=== PATIENT | female | born 1980 | race Caucasian/White ===

== ENCOUNTER 2020-04-19 22:17 | Emergency (ER) | payer OTHER ==
[2020-04-19 22:35] VITALS: BP 148/98; PULSE 101; RESP 18; TEMP 98
[2020-04-19] MEDS ORDERED: DIPH,PERTUS(ACELL)TETVAC-LF 0.5 ML VIAL IM ONE (23:40)
[2020-04-19] MEDS ORDERED: LIDOCAINE 1% INJ 10MG/ML (20 ML MDV) SQ ONE (23:40)
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
== END 2020-04-20 00:23 | disposition home or self-care (01) ==
LOC: EC 22:17
DX: S61.012A Laceration without foreign body of left thumb without damage to nail, initial encounter (principal); S61.217A Laceration without foreign body of left little finger without damage to nail, initial encounter; Z88.0 Allergy status to penicillin; Z23 Encounter for immunization; W26.0XXA Contact with knife, initial encounter; Y93.89 Activity, other specified; Y92.009 Unspecified place in unspecified non-institutional (private) residence as the place of occurrence of the external cause
CPT/HCPCS: 90715; 90471; 99282; 12002; J2001

== ENCOUNTER 2020-06-15 12:53 | Emergency (ER) | payer OTHER ==
[2020-06-15 13:18] VITALS: RESP 18
[2020-06-15] MEDS ORDERED: MORPHINE SULFATE 4 MG/ML SYRINGE IM STA (14:19)
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
--- NOTE | 2020-06-15 15:09 | XR ---
Left clavicle and 3 views of the left shoulder HISTORY: Trauma and pain 2 views the left clavicle correlated to 3 views the left shoulder No fracture or dislocation. I question some slight superior displacement of the distal clavicle in re lation to the acromion. Impression: Correlate for acromioclavicular separation
[2020-06-15] MEDS ORDERED: ACET/COD 300 MG/30 MG STARTER PACK 6 TAB BTL PO STA (15:14)
[2020-06-15] MEDS ORDERED: IBUPROFEN 600 MG STARTER PACK 4 TAB BTL PO STA (15:14)
[2020-06-15 15:43] VITALS: BP 134/92; PULSE 70; TEMP 98.2
== END 2020-06-15 15:46 | disposition home or self-care (01) ==
LOC: EC 12:53
DX: S43.102A Unspecified dislocation of left acromioclavicular joint, initial encounter (principal); S80.212A Abrasion, left knee, initial encounter; Z88.0 Allergy status to penicillin; V19.9XXA Pedal cyclist (driver) (passenger) injured in unspecified traffic accident, initial encounter; Y93.55 Activity, bike riding
CPT/HCPCS: 73030; 73000; 99284; 96372; J2270

== ENCOUNTER → 2021-12-13 | Outpatient (CLI) | payer OTHER | END | disposition home or self-care (01) | LOC: RADNMMAIN 15:21 | PROVIDERS: ATTEND Family Medicine | DX: Z53.9 Procedure and treatment not carried out, unspecified reason (principal) ==

== ENCOUNTER → 2022-01-04 | Outpatient (CLI) | payer OTHER ==
--- NOTE | 2022-01-04 13:48 | EST ---
EXERCISE STRESS AGE: 41 SEX: F HT: 5'5" WT: 182 lbs. PROTOCOL: Ronen STAGE: 3 DURATION OF EXERCISE: 9:00 HEART RATE REST: 85 BLOOD PRESSURE REST: 119/91 MAXIMUM HEART RATE ACHIEVED: 172 MAXIMUM BLOOD PRESSURE: 167/89 85% MPHR: 151 100% MPHR: 178 METS: 10.3 INDICATIONS: Chest pain CLINICAL INFORMATION: Baseline rhythm is sinus mechanism, rate of 85, normal axis and intervals, normal electrocardiogram. Baseline blood pressure 119/91 mmHg. Patient exercised on Ronen protocol for 9 minutes, reaching a peak rate of 172 beats per minute, which is equal to 97% of maximum predicted heart rate. Peak blood pressure 167/89 mmHg. Test was terminated secondary to fatigue. There was no chest pain. Electrocardiograph monitoring revealed no evidence of diagnostic ischemic ST deviation. IMPRESSION: 1. Good exercise tolerance with no chest discomfort. 2. Normal electrocardiographic response to exercise, with no evidence of exercise- induced ischemia. MMODL / IJN: [id number] /
== END | disposition home or self-care (01) ==
LOC: RADNMMAIN 10:26
PROVIDERS: ATTEND Family Medicine
DX: R07.9 Chest pain, unspecified (principal)
CPT/HCPCS: 93017

== ENCOUNTER 2025-06-15 16:19 | Emergency (ER) | payer OTHER ==
[2025-06-15 16:23] VITALS: TEMP 97.6
--- NOTE | 2025-06-15 16:44 | ED ---
General Adult HPI - General Chief complaint: Shortness of Breath Stated complaint: Shortness of breath Time Seen by Provider: 06/15/25 16:28 Source: patient, RN notes reviewed, old records reviewed Mode of arrival: ambulatory Limitations: no limitations - History of Present Illness Initial comments: 44-year-old female presents emergency department complaining of shortness of breath. States she has tightness across her chest and feels like she cannot take a deep breath then. Does have a history of asthma. States that has been ongoing for the last 2 days. Has been getting worse. Has a nonproductive cough but mostly feels like she cannot catch her breath. Denies any fevers or chills. Denies any significant nausea, vomiting, diarrhea. No other pain. No cardiac history. Presents for further evaluation at this time. Does work in a doctor's office. - Related Data Previous Rx's Medication Instructions Recorded Albuterol Sulfate [Ventolin HFA] 1 - 2 puff INHALATION Q6H PRN #1 06/15/25 each predniSONE [Deltasone] 40 mg PO DAILY 5 Days #10 tab 06/15/25 Allergies Allergy/AdvReac Type Severity Reaction Status Date / Time Penicillins Allergy Unknown Verified 06/15/25 17:35 Review of Systems ROS Statement: Those systems with pertinent positive or pertinent negative responses have been documented in the HPI. Review of Systems: CONST: Denies fever EYES: Denies blurry vision ENT: Denies nasal congestion C/V: Denies Chest pain RESP: Endorses dyspnea GI: Denies abdominal pain : Denies dysuria SKIN: Denies rash. MSK: Denies joint pain. NEURO: Denies headache ROS Other: All systems not noted in ROS Statement are negative. Past Medical History Past Medical History: Asthma, Hypertension History of Any Multi-Drug Resistant Organisms: None Reported Past Surgical History: Hysterectomy Past Psychological History: No Psychological Hx Reported Smoking Status: Never smoker Past Alcohol Use History: Occasional Past Drug Use History: Marijuana General Exam - General Exam Comments Initial Comments: General: Appears in no acute distress. HEAD: Normal with no signs of head trauma. EYES: EOMI ENT: Hearing grossly intact, normal oropharynx. RESPIRATORY: Tight breath sounds bilaterally with wheezing. No significant increased work of breathing. No significant hypoxia. C/V: Regular rate and rhythm. S1 and S2 auscultated, no edema, peripheral pulses 2+ and intact throughout ABD: Abd is soft, nontender, nondistended EXT: Normal range of motion, no obvious deformity SKIN: No rashes or lesions observed on exposed skin. NEURO: Alert and oriented x 4. Limitations: no limitations Course Vital Signs 06/15/25 06/15/25 06/15/25 16:20 17:45 17:51 Temperature 97.6 F Pulse Rate 100 85 78 Respiratory 20 18 18 Rate Blood Pressure 150/104 O2 Sat by Pulse 99 Oximetry 06/15/25 06/15/25 18:21 18:30 Temperature Pulse Rate 70 Respiratory 18 26 H Rate Blood Pressure 147/96 O2 Sat by Pulse 98 Oximetry Medical Decision Making - Medical Decision Making Was pt. sent in by a medical professional or institution (, PA, CARDIOVASCULAR LAB DIRECTOR, urgent care, hospital, or fci...) When possible be specific @ -No Did you speak to anyone other than the patient for history (EMS, parent, family, police, friend...)? What history was obtained from this source @ -No Did you review nursing and triage notes (agree or disagree)? Why? @ -I reviewed and agree with nursing and triage notes Were old charts reviewed (outside hosp., previous admission, EMS record, old EKG, old radiological studies, urgent care reports/EKG's, fci records)? Report findings @ -no Differential Diagnosis (chest pain, altered mental status, abdominal pain women, abdominal pain men, vaginal bleeding, weakness, fever, dyspnea, syncope, headache, dizziness, GI bleed, back pain, seizure, CVA, palpatations, mental health, musculoskeletal)? @ -Asthma, COVID, flu, RSV, pneumonia. This list is not all-inclusive. EKG interpreted by me (3pts min.). @ -As above X-rays interpreted by me (1pt min.). @ -Chest x-ray shows no obvious acute cardiopulmonary process. CT interpreted by me (1pt min.). @ -None done U/S interpreted by me (1pt. min.). @ -None done What testing was considered but not performed or refused? (CT, X-rays, U/S, labs)? Why? @ -None What meds were considered but not given or refused? Why? @ -None Did you discuss the management of the patient with other professionals (azul figueroa isnehal Burrows, LIBRA, CARDIOVASCULAR LAB DIRECTOR, lab, RT, psych nurse, social work instructor, head grease maker, teacher, aoc operations intelligence officer, manager case management)? Give summary @ -No Was smoking cessation discussed for >3mins.? @ -No Was critical care preformed (if so, how long)? @ -No Were there social determinants of health that impacted care today? How? (Homelessness, low income, unemployed, alcoholism, drug addiction, transportation, low edu. Level, literacy, decrease access to med. care, prison, rehab)? @ -No Was there de-escalation of care discussed even if they declined (Discuss DNR or withdrawal of care, Hospice)? DNR status @ -No What co-morbidities impacted this encounter? (DM, HTN, Smoking, COPD, CAD, Cancer, CVA, ARF, Chemo, Hep., AIDS, mental health diagnosis, sleep apnea, morbid obesity)? @ -None Was patient admitted / discharged? Hospital course, mention meds given and route, prescriptions, significant lab abnormalities, going to OR and other pertinent info. @ -Based on patient's presentation and physical exam, presents emergency department complaining of difficulty in breathing with some chest tightness. Seems to be related to her asthma. Cannot rule out infectious cause at this time. We will obtain viral swabs, basic labs, and patient will be administered IV fluids, IV steroids, breathing treatments, Toradol. She was in agreement this plan. Will obtain chest x-ray as well. Screening EKG shows no signs of acute ischemia.Chest x-ray unremarkable. Troponin undetectable. D-dimer within normal limits. Remainder the labs remarkable for positive COVID-19 test. On reevaluation, patient's lung sounds are improved. She is feeling improved. Discussed admission versus discharge and patient would like to try to go home which I believe is reasonable. She clinically is improved. Is not hypoxic with stable vital signs. I recommend strict return precautions. She will be started on oral prednisone as well as inhaler at home. We did discuss Paxlovid which patient declined at this time. Strict return precautions discussed. Recommend she follow-up with her PCP. Patient will remain off work for the week as she is currently on vacation. I will provide the patient with a prescription for prednisone, albuterol inhaler. I instructed the patient to follow up with their PCP in the next 1-3 days.. I explained that the patient should return to the emergency department if they experience any worsening symptoms. Strict return precautions were discussed with the patient. The patient expressed understanding of these instructions. I answered all questions that the patient had. The patient was discharged home in good condition with their prescriptions and follow up information. Undiagnosed new problem with uncertain prognosis? @ -No Drug Therapy requiring intensive monitoring for toxicity (Heparin, Nitro, Insulin, Cardizem)? @ -No Were any procedures done? @ -No Diagnosis/symptom? @ -Asthma exacerbation, COVID-19 infection Acute, or Chronic, or Acute on Chronic? @ -Acute Uncomplicated (without systemic symptoms) or Complicated (systemic symptoms)? @ -Uncomplicated Side effects of treatment? @ -None Exacerbation, Progression, or Severe Exacerbation] @ -No Poses a threat to life or bodily function? @ -Unlikely at this time - Lab Data Result diagrams: 06/15/25 18:14 06/15/25 18:14 Lab Results 06/15/25 06/15/25 06/15/25 Range/Units 18:14 18:14 18:14 WBC 9.28 (4.50-10.00) 10*3/uL RBC 5.55 H (4.10-5.20) 10*6/uL Hgb 16.4 H (12.0-15.0) g/dL Hct 46.1 (37.2-46.3) % MCV 83.1 (80.0-97.0) fL MCH 29.5 (27.0-32.0) pg MCHC 35.6 (32.0-37.0) g/dL Plt Count 220 (140-440) 10*3/uL MPV 8.6 L (9.5-12.2) fL Immature Gran % (Auto) 0.3 % Neutrophils % 78.2 % Lymphocytes % 10.1 % Monocytes % 10.6 % Eosinophils % 0.2 % Basophils % 0.6 % Immature Gran # 0.03 (0.00-0.04) 10*3/uL Neutrophils # 7.25 (1.80-7.70) 10*3/uL Lymphocytes # 0.94 (0.90-5.00) 10*3/uL Monocytes # 0.98 (0.20-1.00) 10*3/uL Eosinophils # 0.02 L (0.04-0.35) 10*3/uL Basophils # 0.06 (0.00-0.10) 10*3/uL PT (10.0-12.5) sec INR (<1.2) APTT (22.0-30.0) sec D-Dimer (<0.60) mg/L FEU Sodium 138 (137-145) mmol/L Potassium 4.3 (3.5-5.1) mmol/L Chloride 103 (98-107) mmol/L Carbon Dioxide 20 L (22-30) mmol/L Anion Gap 15 mmol/L BUN 7 (7-17) mg/dL Creatinine 0.94 (0.52-1.04) mg/dL Est GFR (CKD-EPI)AfAm 85 (>60 ml/min/1.73 sqM) Est GFR (CKD-EPI)NonAf 74 (>60 ml/min/1.73 sqM) Glucose 112 H (74-99) mg/dL Calcium 10.2 (8.4-10.2) mg/dL Magnesium 2.0 (1.6-2.3) mg/dL Total Bilirubin 1.0 (0.2-1.3) mg/dL AST 24 (14-36) U/L ALT 11 (4-34) U/L Alkaline Phosphatase 87 (38-126) U/L Troponin I (0.000-0.034) ng/mL NT-Pro-B Natriuret Pep 82 pg/mL Total Protein 7.6 (6.3-8.2) g/dL Albumin 4.9 (3.5-5.0) g/dL Influenza Type A (PCR) Not Detected (Not Detectd) Influenza Type B (PCR) Not Detected (Not Detectd) RSV (PCR) Not Detected (Not Detectd) SARS-CoV-2 (PCR) Detected A (Not Detectd) 06/15/25 06/15/25 Range/Units 18:14 18:14 WBC (4.50-10.00) 10*3/uL RBC (4.10-5.20) 10*6/uL Hgb (12.0-15.0) g/dL Hct (37.2-46.3) % MCV (80.0-97.0) fL MCH (27.0-32.0) pg MCHC (32.0-37.0) g/dL Plt Count (140-440) 10*3/uL MPV (9.5-12.2) fL Immature Gran % (Auto) % Neutrophils % % Lymphocytes % % Monocytes % % Eosinophils % % Basophils % % Immature Gran # (0.00-0.04) 10*3/uL Neutrophils # (1.80-7.70) 10*3/uL Lymphocytes # (0.90-5.00) 10*3/uL Monocytes # (0.20-1.00) 10*3/uL Eosinophils # (0.04-0.35) 10*3/uL Basophils # (0.00-0.10) 10*3/uL PT 10.4 (10.0-12.5) sec INR 0.9 (<1.2) APTT 23.4 (22.0-30.0) sec D-Dimer 0.32 (<0.60) mg/L FEU Sodium (137-145) mmol/L Potassium (3.5-5.1) mmol/L Chloride (98-107) mmol/L Carbon Dioxide (22-30) mmol/L Anion Gap mmol/L BUN (7-17) mg/dL Creatinine (0.52-1.04) mg/dL Est GFR (CKD-EPI)AfAm (>60 ml/min/1.73 sqM) Est GFR (CKD-EPI)NonAf (>60 ml/min/1.73 sqM) Glucose (74-99) mg/dL Calcium (8.4-10.2) mg/dL Magnesium (1.6-2.3) mg/dL Total Bilirubin (0.2-1.3) mg/dL AST (14-36) U/L ALT (4-34) U/L Alkaline Phosphatase (38-126) U/L Troponin I <0.012 (0.000-0.034) ng/mL NT-Pro-B Natriuret Pep pg/mL Total Protein (6.3-8.2) g/dL Albumin (3.5-5.0) g/dL Influenza Type A (PCR) (Not Detectd) Influenza Type B (PCR) (Not Detectd) RSV (PCR) (Not Detectd) SARS-CoV-2 (PCR) (Not Detectd) - EKG Data -: EKG Interpreted by Me EKG Comments: 12-lead Electrocardiogram Interpretation Note EKG was reviewed and interpreted by myself. 12-lead ECG performed at 1625 is interpreted by me as revealing normal sinus rhythm at a rate of 84 beats per minute. [place] is normal. SD interval is 138 ms, QRS durations 88 ms, QTc is 380 ms.. There were no ST or T wave abnormalities to suggest myocardial ischemia or injury. R wave progression across the precordium was satisfactory. By my interpretation this EKG is non-diagnostic for acute ischemia. Disposition Clinical Impression: Asthma exacerbation, COVID-19 virus infection Disposition: HOME SELF-CARE Condition: Good Instructions (If sedation given, give patient instructions): Asthma (ED), COVID-19 (Coronavirus Disease 2019) (ED) Prescriptions: predniSONE [Deltasone] 40 mg PO DAILY 5 Days #10 tab Albuterol Sulfate [Ventolin HFA] 1 - 2 puff INHALATION Q6H PRN #1 each PRN Reason: Wheezing Is patient prescribed a controlled substance at d/c from ED?: No Referrals: Kevan Jean DO [REFERRING] - 1-2 days Time of Disposition: 19:20
[2025-06-15] MEDS: IPRATROPIUM-ALBUTEROL 3 ML NEB INHALATION STA (17:41)
--- NOTE | 2025-06-15 18:07 | XR ---
EXAMINATION TYPE: XR chest 2V DATE OF EXAM: 06/15/2025 6:02 PM COMPARISON: None CLINICAL INDICATION: Female, 44 years old with history of difficulty breathing; [facility] TECHNIQUE: XR chest 2V Frontal and lateral views of the chest. FINDINGS: Lungs/Pleura: There is no evidence of pleural effusion, focal consolidation, or pneumothorax. Pulmonary vascularity: Unremarkable. Heart/mediastinum: Cardiomediastinal silhouette is unremarkable. Musculoskeletal: No acute osseous pathology. Other findings: None IMPRESSION: No acute cardiopulmonary disease/process. [facility], , 06/15/2025 6:05 PM
[2025-06-15] MEDS: KETOROLAC 15 MG/ML 1 ML VIAL IVP STA (18:13)
[2025-06-15] MEDS: methylPREDNISolone SOD SUCCI 125 MG/2 ML VIAL IV STA (18:13)
[2025-06-15] MEDS: MAGNESIUM SULFATE-D5W PMX 1 GM in DEXTROSE/WATER 1 100ML.BAG IVPB STA (18:16)
[2025-06-15] MEDS: SODIUM CHLORIDE 0.9% 1,000 ML IV ONE (18:17)
[2025-06-15 18:28] LABS: Basophils # (A) 0.06 10*3/uL (0.00-0.10); Basophils % (A) 0.6 %; Eosinophils # (A) 0.02 10*3/uL (0.04-0.35); Eosinophils % (A) 0.2 %; HCT 46.1 % (37.2-46.3); HGB 16.4 g/dL (12.0-15.0); Lymphocytes # (A) 0.94 10*3/uL (0.90-5.00); Lymphocytes % (A) 10.1 %; MCH 29.5 pg (27.0-32.0); MCHC 35.6 g/dL (32.0-37.0); MCV 83.1 fL (80.0-97.0); Monocytes # (A) 0.98 10*3/uL (0.20-1.00); Monocytes % (A) 10.6 %; Neutrophils # (A) 7.25 10*3/uL (1.80-7.70); Neutrophils % (A) 78.2 %; Platelet Count 220 10*3/uL (140-440); RBC 5.55 10*6/uL (4.10-5.20); RDW 12.4 % (11.5-14.5); WBC 9.28 10*3/uL (4.50-10.00)
[2025-06-15 18:43] LABS: ALT 11 U/L (4-34); AST 24 U/L (14-36); African American GFR (CKD) 85 (>60 ml/min/1.73 sqM); Albumin 4.9 g/dL (3.5-5.0); Alkaline Phosphatase 87 U/L (38-126); Anion Gap 15 mmol/L; Blood Urea Nitrogen 7 mg/dL (7-17); Calcium 10.2 mg/dL (8.4-10.2); Carbon Dioxide 20 mmol/L (22-30); Chloride 103 mmol/L (98-107); Glucose 112 mg/dL (74-99); Magnesium 2.0 mg/dL (1.6-2.3); Non-African American GFR(CKD) 74 (>60 ml/min/1.73 sqM); Potassium 4.3 mmol/L (3.5-5.1); Sodium 138 mmol/L (137-145); Total Protein 7.6 g/dL (6.3-8.2)
[2025-06-15 18:52] LABS: NT-Pro-B-Type Natriuretic Pept 82 pg/mL
[2025-06-15 18:55] LABS: INR 0.9 (<1.2); Partial Thromboplastin Time 23.4 sec (22.0-30.0); Prothrombin Time 10.4 sec (10.0-12.5)
[2025-06-15 19:06] LABS: RSV Not Detected (Not Detectd)
[2025-06-15 20:45] VITALS: BP 143/93; PULSE 71; RESP 18
== END 2025-06-15 20:45 | disposition home or self-care (01) ==
LOC: EC 16:19
CPT/HCPCS: 36415; 71046; 80053; 83735; 83880; 84484; 85025; 85379; 85610; 85730; 87636; 93005; 94640; 96365; 96366; 96375; 99285